=== PATIENT | male | born 1965 | race Caucasian/White ===

== ENCOUNTER → 2021-05-03 | Day surgery (SDC) | payer OTHER ==
[~2021-05-03] VITALS: Ht 185.4 cm; Wt 95.4 kg
== END | disposition home or self-care (01) ==
LOC: FAS 07:31
DX: Z12.11 Encounter for screening for malignant neoplasm of colon (principal); D12.2 Benign neoplasm of ascending colon; E78.5 Hyperlipidemia, unspecified; Z86.010 Personal history of colon polyps; Z87.891 Personal history of nicotine dependence; Z80.0 Family history of malignant neoplasm of digestive organs
CPT/HCPCS: J2250; J2704; J7120

== ENCOUNTER → 2021-09-25 | Day surgery (SDC) | payer OTHER ==
[~2021-09-25] VITALS: Ht 185.4 cm; Wt 95.4 kg
[2021-09-25 07:46] LABS: HGB 14.6 g/dl (13.2-18.0); MCV 91.3 fL (78.0-100.0); MPV 10.2 fL (6.0-9.5); RBC 4.71 M/uL (4.70-6.00); RDW 11.8 % (11.5-14.0); WBC 6.1 K/uL (4.0-10.5)
== END | disposition home or self-care (01) ==
LOC: FAS 07:07
PROVIDERS: Legal Medicine
DX: M75.112 Incomplete rotator cuff tear or rupture of left shoulder, not specified as traumatic (principal); M19.012 Primary osteoarthritis, left shoulder; M75.42 Impingement syndrome of left shoulder; Z98.61 Coronary angioplasty status; Z79.82 Long term (current) use of aspirin
CPT/HCPCS: 36415; J0171; J0690; J1100; J2250; J2405; J2704; J2795; J7120